=== PATIENT | female | born 2005 | race African-American/Black ===

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

== ENCOUNTER 2024-03-17 11:17 | Emergency (ER) | payer OTHER, SELFPAY ==
[2024-03-17 11:28] VITALS: BP 131/74; PULSE 98; RESP 18; TEMP 37.1; O2SAT 93; BMI 20.5
--- NOTE | 2024-03-17 11:33 | DI.RAD.S_ITS ---
PROCEDURE: XR CHEST 2V INDICATIONS: Cough, phlegm, >week TECHNIQUE: 2 views of the chest were acquired. COMPARISON: None. FINDINGS: Surgical changes and devices: None. Lungs and pleura: Lungs are clear. No pleural effusions or pneumothorax. Mediastinum: Mediastinal contours are normal. Heart size is normal. Bones and chest wall: No suspicious bony abnormalities. Soft tissues appear unremarkable. IMPRESSION: No acute pulmonary process. Dictated by: Sahara Yancey M.D. on 03/17/2024 at 12:34 Approved by: Sahara Yancey M.D. on 03/17/2024 at 12:34
--- NOTE | 2024-03-17 12:05 | ED_ITS ---
HPI - URI/Sore Throat <Mary Carmen Garner PA-C - Last Filed: 03/17/24 13:27> General Chief Complaint: Upper Respiratory Symptoms Stated Complaint: cough for a wk, SOB chest tightness Time Seen by Provider: 03/17/24 12:05 Source: patient Mode of arrival: Family Vehicle History of Present Illness HPI Narrative: Ms. Barcenas is a pleasant 18-year-old female with a past medical history of asthma who presents to the emergency department for productive cough x1 week. Patient states that at times she has chest tightness and shortness of breath associated with the cough. She also has a sore throat. Describes cough as very wet with greenish phlegm. States that she has lost her albuterol inhaler so she has not been able to use that. Reports that she has been around sick family members. The last 2 nights she has had trouble sleeping due to nighttime cough which is what prompted her emergency department visit. Denies fevers, chills, dysuria, hematuria, leg pain or swelling. She does note 1 episode of nonbloody diarrhea. She does smoke. Related Data Previous Rx's Medication Instructions Recorded albuterol sulfate 90 mcg/actuation 2 puff inhalation Q6H PRN 03/17/24 aerosol inhaler shortness of breath or wheezing #6.7 grams benzonatate 200 mg capsule 200 mg PO BID-TID PRN cough #14 03/17/24 caps prednisone 20 mg tablet 40 mg (2 x 20 mg) PO DAILY 5 days 03/17/24 #10 tabs Review of Systems <Mary Carmen Garner PA-C - Last Filed: 03/17/24 13:27> Review of Systems ROS Unobtainable: All systems reviewed & are unremarkable except as noted in HPI and below Patient History <Mary Carmen Garner PA-C - Last Filed: 03/17/24 13:27> Social History Smoking Status: Current every day smoker Smoking Status: Current every day smoker tobacco type: vaping alcohol intake frequency: 0-2 drinks per day Exam <Mary Carmen Garner PA-C - Last Filed: 03/17/24 13:27> Narrative Exam Narrative: GENERAL: 18 year old patient appears stated age. Well-developed patient, in no acute distress. HEAD: Atraumatic. Normocephalic. ENT: Nose without bleeding, purulent drainage. Throat with mild posterior oropharyngeal erythema and 2+ bilateral tonsillar hypertrophy. Airway patent. NECK: Trachea midline. Cervical ROM intact. CARDIOVASCULAR: Regular rate and rhythm. RESPIRATORY: ?Nonlabored respirations. ?Speaking in clear, full sentences. Very mild but diffuse expiratory wheezes present. EXTREMITIES: No edema or joint tenderness. NEURO: AOx3. ?Clear speech. ?Moves all 4 extremities appropriately. SKIN: No rash or erythema of visible areas Initial Vital Signs Initial Vital Signs: Vital Signs Temperature 98.8 F 03/17/24 11:28 Pulse Rate 98 H 03/17/24 11:28 Respiratory Rate 18 03/17/24 11:28 Blood Pressure 131/74 03/17/24 11:28 Pulse Oximetry 93 03/17/24 11:28 Oxygen Delivery Method Room Air 03/17/24 11:28 <Thais Julien MD - Last Filed: 03/19/24 07:29> Initial Vital Signs Initial Vital Signs: Vital Signs Temperature 98.8 F 03/17/24 11:28 Pulse Rate 98 H 03/17/24 11:28 Respiratory Rate 18 03/17/24 11:28 Blood Pressure 131/74 03/17/24 11:28 Pulse Oximetry 93 03/17/24 11:28 Oxygen Delivery Method Room Air 03/17/24 11:28 Course <Mary Carmen Garner PA-C - Last Filed: 03/17/24 13:27> Orders Ordered: Discontinued Medications Albuterol/Ipratropium (Albuterol/Ipratropium 3 Ml Ampul) 3 ml INH NOW ONE Stop: 03/17/24 12:25 Last Admin: 03/17/24 12:33 Dose: 3 ml Documented By: WENDY Prednisone (Prednisone 20 Mg Tablet) 40 mg PO NOW ONE Stop: 03/17/24 12:25 Last Admin: 03/17/24 12:47 Dose: 40 mg Documented By: SPF Vital Signs Vital signs: Vital Signs - 8 hr 03/17/24 11:28 03/17/24 12:33 Temperature 98.8 F Pulse Rate 98 H 91 H Respiratory Rate 18 18 Blood Pressure 131/74 Pulse Oximetry 93 99 Oxygen Delivery Method Room Air Room Air <Thais Julien MD - Last Filed: 03/19/24 07:29> Orders Ordered: Discontinued Medications Albuterol/Ipratropium (Albuterol/Ipratropium 3 Ml Ampul) 3 ml INH NOW ONE Stop: 03/17/24 12:25 Last Admin: 03/17/24 12:33 Dose: 3 ml Documented By: WENDY Prednisone (Prednisone 20 Mg Tablet) 40 mg PO NOW ONE Stop: 03/17/24 12:25 Last Admin: 03/17/24 12:47 Dose: 40 mg Documented By: LISA Vital Signs Vital signs: Vital Signs - 8 hr 03/17/24 11:28 03/17/24 12:33 Temperature 98.8 F Pulse Rate 98 H 91 H Respiratory Rate 18 18 Blood Pressure 131/74 Pulse Oximetry 93 99 Oxygen Delivery Method Room Air Room Air MDM - URI/Sore Throat <Mary Carmen Garner PA-C - Last Filed: 03/17/24 13:27> Lab Data Labs: Lab Results 03/17/24 03/17/24 Range/Units 11:35 12:35 Chlamy pneumoniae PCR Not detected (Not Detect) Adenovirus (PCR) Not detected (Not Detect) B. pertussis DNA (PCR) Not detected (Not Detect) B.parapertussis DNA PCR Not detected (Not Detecte) Coronavirus OC43 (PCR) Not detected (Not Detect) Coronavirus HKU1 (PCR) Not detected (Not Detect) Coronavirus 229E (PCR) Not detected (Not Detect) SARS-CoV-2 (PCR) Not detected (Not Detecte) Coronavirus NL63 (PCR) Not detected (Not Detect) Human Metapneumovir PCR Not detected (Not Detect) Influenza Type A (PCR) Not detected (Not Detect) Influenza Type B (PCR) Not detected (Not Detect) M. pneumoniae (PCR) Not detected (Not Detect) Parainfluenza 1 (PCR) Not detected (Not Detect) Parainfluenza 2 (PCR) Not detected (Not Detect) Parainfluenza 3 (PCR) Not detected (Not Detect) Parainfluenza 4 (PCR) Not detected (Not Detect) RSV (PCR) Not detected (Not Detect) Entero/Rhino (PCR) Not detected (Not Detect) Group A Strep (PCR) Negative (Negative) Imaging Data Chest x-ray: Radiologist's Impression: PROCEDURE: XR CHEST 2V INDICATIONS: Cough, phlegm, >week TECHNIQUE: 2 views of the chest were acquired. COMPARISON: None. FINDINGS: Surgical changes and devices: None. Lungs and pleura: Lungs are clear. No pleural effusions or pneumothorax. Mediastinum: Mediastinal contours are normal. Heart size is normal. Bones and chest wall: No suspicious bony abnormalities. Soft tissues appear unremarkable. IMPRESSION: No acute pulmonary process. MDM Narrative Medical decision making narrative: 18-year-old female with a past medical history of asthma who presents to the emergency department for productive cough x1 week. Differential diagnosis includes but is not limited to asthma exacerbation, bronchitis, viral URI, pneumonia, etc. On exam the patient is in no acute distress, nontoxic appearing. Triage vital signs did display heart rate of 98, O2 sat 93 on room air, temp 98.8?, normal blood pressure. She has no increased work breathing. She does have very mild but diffuse expiratory wheezing present. She does have posterior oropharyngeal erythema and some tonsillar hypertrophy. In triage a chest x-ray and full respiratory panel was obtained. We will treat patient with oral prednisone, 1 time DuoNeb, results pending. Chest x-ray negative for pneumonia or other abnormality. Respiratory panel negative for specific pathogen. Strep swab negative. Patient's symptoms consistent with bronchitis and asthma exacerbation. We will treat with albuterol inhaler, short course prednisone, will prescribe Tessalon Perles if needed for cough and recommend supportive care such as hydration, warm tea with honey, ibuprofen/Tylenol for pain. O2 sats increased to 99% after neb, wheezing resolved, she is feeling much better. Patient verbalized understanding of all information, she is stable for discharge home. <Thais Julien MD - Last Filed: 03/19/24 07:29> Lab Data Labs: Lab Results 03/17/24 03/17/24 Range/Units 11:35 12:35 Chlamy pneumoniae PCR Not detected (Not Detect) Adenovirus (PCR) Not detected (Not Detect) B. pertussis DNA (PCR) Not detected (Not Detect) B.parapertussis DNA PCR Not detected (Not Detecte) Coronavirus OC43 (PCR) Not detected (Not Detect) Coronavirus HKU1 (PCR) Not detected (Not Detect) Coronavirus 229E (PCR) Not detected (Not Detect) SARS-CoV-2 (PCR) Not detected (Not Detecte) Coronavirus NL63 (PCR) Not detected (Not Detect) Human Metapneumovir PCR Not detected (Not Detect) Influenza Type A (PCR) Not detected (Not Detect) Influenza Type B (PCR) Not detected (Not Detect) M. pneumoniae (PCR) Not detected (Not Detect) Parainfluenza 1 (PCR) Not detected (Not Detect) Parainfluenza 2 (PCR) Not detected (Not Detect) Parainfluenza 3 (PCR) Not detected (Not Detect) Parainfluenza 4 (PCR) Not detected (Not Detect) RSV (PCR) Not detected (Not Detect) Entero/Rhino (PCR) Not detected (Not Detect) Group A Strep (PCR) Negative (Negative) Discharge Plan Departure Patient Disposition: Home Clinical Impression: Bronchitis Asthma exacerbation Qualifiers: Asthma severity: mild Asthma persistence: unspecified Qualified Code(s): J45.901 - Unspecified asthma with (acute) exacerbation Instructions: DI for Acute Bronchitis Activity Restrictions/Additional Instructions: Today your chest x-ray reveals no pneumonia or bacterial upper respiratory infection. Your viral swab was negative for COVID, the flu, RSV, and other pathogens. Strep throat swab negative. Your exam did reveal wheezing so you were treated with oral steroids and an inhaler nebulizer treatment. Your symptoms are likely the results an upper respiratory virus causing an exacerbation of your asthma. Please complete the full course of prescribed steroids and use prescribed albuterol inhaler as needed. Please try to decrease or stop smoking and follow up with the primary care doctor for repeat evaluation as soon as possible. You may use warm tea with honey to help with sore throat, increase hydration with water or Pedialyte to help expel mucus, and use ibuprofen/Tylenol as needed for pain and inflammation. Please take Ibuprofen (Motrin/Advil) or Acetaminophen (Tylenol) for pain. These are available over the counter. You may take Ibuprofen 600 mg every 8 hours with food for pain. You may also take Acetaminophen 650 mg every 4-6 hours for pain. Do not exceed 3000 mg of Tylenol a day as this can cause liver damage. Do not drink alcohol with either of these medications. If you develop persistent fevers, difficulty breathing, worsening of symptoms or any other concerns please return immediately to the ER. Otherwise follow up with your primary care doctor. Please follow up with your primary care doctor within the next 2-3 days for ER follow-up. (If you do not have a PCP you can call [phone]. ?to schedule an appointment with an [facility] Primary Care Provider) IF YOU DEVELOP ANY NEW OR WORSENING SYMPTOMS, RETURN TO THE ER! Please read the attached instructions, they highlight more specific treatments and interventions for you at home. Thank you for letting me participate in your care, Mary Carmen Garner PA-C Prescriptions: New albuterol sulfate 90 mcg/actuation HFA aerosol inhaler 2 puff inhalation Q6H PRN (Reason: shortness of breath or wheezing) Qty: 6.7 0RF prednisone 20 mg tablet 40 mg PO DAILY 5 Days Qty: 10 0RF benzonatate 200 mg capsule 200 mg PO BID-TID PRN (Reason: cough) Qty: 14 0RF Referrals: Prem Patton MD [Primary Care Provider] - Stand Alone Forms: Patient Portal/API/Survey ED Sign-out <Thais Julien MD - Last Filed: 03/19/24 07:29> Cosign ED Attending Mikaature Attestation: I was immediately available in the department for consultation throughout this patient's visit. Thais Julien MD
[2024-03-17 12:31] LABS: Adenovirus Not Detected (Not Detect); B. parapertussis Not Detected (Not Detecte); Bordetella pertussis Not Detected (Not Detect); Chlamydophila pneumoniae Not Detected (Not Detect); Coronavirus 229E Not Detected (Not Detect); Coronavirus HKU1 Not Detected (Not Detect); Coronavirus NL 63 Not Detected (Not Detect); Coronavirus OC43 Not Detected (Not Detect); Human Metapneumovirus Not Detected (Not Detect); Human Rhinovirus/Enterovirus Not Detected (Not Detect); Influenza A Not Detected (Not Detect); Influenza B Not Detected (Not Detect); Mycoplasma pneumoniae Not Detected (Not Detect); Parainfluenza Virus 1 Not Detected (Not Detect); Parainfluenza Virus 2 Not Detected (Not Detect); Parainfluenza Virus 3 Not Detected (Not Detect); Parainfluenza Virus 4 Not Detected (Not Detect); Respiratory Syncytial Virus Not Detected (Not Detect); SARS- CoV-2 Not Detected (Not Detecte)
[2024-03-17 12:33] VITALS: PULSE 91; RESP 18; O2SAT 99
[2024-03-17] MEDS: ALBUTEROL/IPRATROPIUM 3 ML AMPUL INH (12:33)
[2024-03-17] MEDS: predniSONE 20 MG TABLET 40 MG PO (12:47)
[2024-03-17 13:02] LABS: Strep Grp A by PCR Rapid Negative (Negative)
[2024-03-17 13:34] VITALS: BP 130/72; PULSE 95; RESP 18; O2SAT 97
== END 2024-03-17 13:34 | disposition home or self-care (01) ==
PROVIDERS: Emergency Medicine; Emergency Provider Physician Assistant; PCP Pediatrics
DX: J20.9 Acute bronchitis, unspecified (principal); J45.901 Unspecified asthma with (acute) exacerbation; R07.9 Chest pain, unspecified; R06.02 Shortness of breath; J02.9 Acute pharyngitis, unspecified
CPT/HCPCS: 71046; 87633; 87651; 94640; 99283

== ENCOUNTER 2024-06-25 11:33 | Emergency (ER) | payer OTHER, SELFPAY ==
[2024-06-25 11:43] VITALS: BP 128/71; PULSE 88; RESP 16; TEMP 36.9; O2SAT 96; BMI 20.5
--- NOTE | 2024-06-25 11:47 | EKG_ITS ---
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
--- NOTE | 2024-06-25 12:00 | ED_ITS ---
HPI - Chest Pain <Phoebe Larson PA-C - Last Filed: 06/25/24 13:14> General Chief Complaint: Chest Pain Stated Complaint: Chest pain Time Seen by Provider: 06/25/24 11:59 Source: patient Mode of arrival: Ambulatory History of Present Illness HPI narrative: 18-year-old female with past medical history GERD presents to the ED with 2 days of left-sided chest pain. Patient states that it is worse with laying on her le ft side. Endorses some nausea. No fever, chills, rhinorrhea, cough, sore throat, dysuria, lightheadedness, dizziness, syncope. Patient endorses vaping. Patient denies any other recreational drug use. Related Data Previous Rx's Medication Instructions Recorded albuterol sulfate 90 mcg/actuation 2 puff inhalation Q6H PRN 03/17/24 aerosol inhaler shortness of breath or wheezing #6.7 grams benzonatate 200 mg capsule 200 mg PO BID-TID PRN cough #14 03/17/24 caps Allergies Allergy/AdvReac Type Severity Reaction Status Date / Time pimecrolimus [From Elidel] Allergy Verified 06/25/24 11:51 Review of Systems <Phoebe Larson PA-C - Last Filed: 06/25/24 13:14> Constitutional Constitutional: Denies chills, Denies fatigue, Denies fever(s), Denies frequent falls, Denies lethargy and Denies weakness Eyes Eyes: Denies change in vision, Denies eye discharge, Denies irritation and Denies loss of vision ENT Ears, Nose, Mouth, and Throat: Denies change in voice, Denies dizziness, Denies neck pain, Denies sore throat and Denies throat swelling Cardiovascular Cardiovascular: Reports chest pain, Denies irregular heart rhythm, Denies lightheadedness, Denies palpitations, Denies dyspnea, Denies dyspnea on exertion and Denies orthopnea Respiratory Respiratory: Denies cough, Denies dyspnea, Denies dyspnea on exertion and Denies wheezing Gastrointestinal Gastrointestinal: Denies abdominal pain, Denies change in bowel habits, Denies diarrhea, Denies nausea and Denies vomiting Musculoskeletal Musculoskeletal: Denies neck pain and Denies numbness Integumentary/Breasts Skin/Breast: Denies pruritus, Denies erythema, Denies rash and Denies wounds Neurologic Neurologic: Denies behavioral changes, Denies confusion, Denies dizziness, Denies frequent falls, Denies loss of vision, Denies numbness and Denies weakness Psychiatric Psychiatric: Denies anxiety, Denies behavioral changes, Denies confusion, Denies depression, Denies homicidal ideation and Denies suicidal ideation Endocrine Endocrine: Denies fatigue, Denies flushing and Denies palpitations Hematologic/Lymphatic Hematologic/Lymphatic: Denies easy bruising Allergic/Immunologic Allergic/Immunologic: Denies urticaria, Denies throat swelling and Denies wheezing Patient History <Phoebe Larson PA-C - Last Filed: 06/25/24 13:14> Social History Smoking Status: Current every day smoker Smoking Status: Current every day smoker tobacco type: vaping alcohol intake frequency: 0-2 drinks per day Exam <Phoebe Larson PA-C - Last Filed: 06/25/24 13:14> Narrative Exam Narrative: Const General:?cooperative, healthy appearing and comfortable [facility] Head:?normal to inspection Ears:?hearing grossly normal bilaterally Nose:?external nose normal Face and sinus:?normal facial exam and sinuses nontender Mouth:?oral mucosae normal Throat:?posterior oropharynx normal Eyes General:?appearance normal, both eyes and all related structures Neck Neck:?normal visual inspection and no lymphadenopathy noted Resp Effort & Inspection:?normal respiratory effort Auscultation:?clear to auscultation bilaterally Cardio Rate:?regular rate Rhythm:?regular rhythm Chest wall: There is left-sided chest wall tenderness reproduced with palpation. GI There is epigastric tenderness to palpation. Abdomen is soft, nondistended Neuro General:?patient alert, patient awake and patient oriented x3 Initial Vital Signs Initial Vital Signs: Vital Signs Temperature 98.5 F 06/25/24 11:43 Pulse Rate 88 06/25/24 11:43 Respiratory Rate 16 06/25/24 11:43 Blood Pressure 128/71 06/25/24 11:43 Pulse Oximetry 96 06/25/24 11:43 Oxygen Delivery Method Room Air 06/25/24 11:43 <Josiane Bruner DO - Last Filed: 06/25/24 18:24> Initial Vital Signs Initial Vital Signs: Vital Signs Temperature 98.5 F 06/25/24 11:43 Pulse Rate 88 06/25/24 11:43 Respiratory Rate 16 06/25/24 11:43 Blood Pressure 128/71 06/25/24 11:43 Pulse Oximetry 96 06/25/24 11:43 Oxygen Delivery Method Room Air 06/25/24 11:43 Course <Phoebe Larson PA-C - Last Filed: 06/25/24 13:14> Orders Ordered: ED Orders 06/25/24 11:42 EKG-12 Lead Stat Discontinued Medications Acetaminophen (Acetaminophen 325 Mg Tablet) 975 mg PO NOW ONE Stop: 06/25/24 12:21 Last Admin: 06/25/24 13:03 Dose: 975 mg Documented By: VIMAL Famotidine (Famotidine 20 Mg Tablet) 40 mg PO NOW ONE Stop: 06/25/24 12:21 Last Admin: 06/25/24 13:03 Dose: 40 mg Documented By: VIMAL Vital Signs Vital signs: Vital Signs - 8 hr 06/25/24 11:43 06/25/24 13:25 Temperature 98.5 F Pulse Rate 88 63 Respiratory Rate 16 16 Blood Pressure 128/71 Pulse Oximetry 96 96 Oxygen Delivery Method Room Air Room Air <Josiane Brunre DO - Last Filed: 06/25/24 18:24> Orders Ordered: ED Orders 06/25/24 11:42 EKG-12 Lead Stat Discontinued Medications Acetaminophen (Acetaminophen 325 Mg Tablet) 975 mg PO NOW ONE Stop: 06/25/24 12:21 Last Admin: 06/25/24 13:03 Dose: 975 mg Documented By: VIAML Famotidine (Famotidine 20 Mg Tablet) 40 mg PO NOW ONE Stop: 06/25/24 12:21 Last Admin: 06/25/24 13:03 Dose: 40 mg Documented By: VIMAL Vital Signs Vital signs: Vital Signs - 8 hr 06/25/24 11:43 06/25/24 13:25 Temperature 98.5 F Pulse Rate 88 63 Respiratory Rate 16 16 Blood Pressure 128/71 Pulse Oximetry 96 96 Oxygen Delivery Method Room Air Room Air MDM - Chest Pain <Phoebe Larson PA-C - Last Filed: 06/25/24 13:14> MDM Narrative Medical decision making narrative: 18-year-old female with past medical history GERD presents to the ED with 2 days of left-sided chest pain. EKG was obtained which is normal sinus rhythm with a nonspecific T-wave abnormality. No acute ST-T changes. No axis deviation. It is reassuring on physical exam, that left-sided chest wall pain is reproducible with palpation. There is also some epigastric tenderness, possibly from GERD. PERC neg. Patient was given Tylenol, Pepcid AC in the ED. Recommend continuing to trial Pepcid AC and Tylenol. Counseled patient on vaping cessation. Recommend follow-up with PCP as soon as possible. ED return precautions discussed with patient. Patient verbalized understanding. Medical records reviewed: Yes Discharge Plan Departure Patient Disposition: Home Clinical Impression: Atypical chest pain Instructions: DI for Atypical Chest Pain Activity Restrictions/Additional Instructions: You were evaluated in the ED today for chest pain. Your EKG was normal. It is reassuring that your pain is reproduced by pushing on your chest. Your symptoms are likely due to a musculoskeletal sprain/strain versus acid reflux. It is also important that you refrain from vaping, since it can cause serious lung damage. You were given Tylenol and Pepcid AC in the ED. you may continue trialing the Pepcid AC twice a day as well as Tylenol for pain. Please follow- up with your PCP as soon as possible. Return to the ED if you have worsening symptoms. Prescriptions: No Action albuterol sulfate 90 mcg/actuation HFA aerosol inhaler 2 puff inhalation Q6H PRN (Reason: shortness of breath or wheezing) Qty: 6.7 0RF benzonatate 200 mg capsule 200 mg PO BID-TID PRN (Reason: cough) Qty: 14 0RF Referrals: ProviderOumar [Primary Care Provider] - Stand Alone Forms: Patient Portal/API/Survey, Work Release Note ED Sign-out <Josiane Bruner DO - Last Filed: 06/25/24 18:24> Cosign ED Attending Mikaature Attestation: I was immediately available in the department for consultation.
[2024-06-25] MEDS: FAMOTIDINE 20 MG TABLET 40 MG PO (13:03)
[2024-06-25] MEDS: ACETAMINOPHEN 325 MG TABLET 975 MG PO (13:03)
--- NOTE | 2024-06-25 13:24 | PC.NURSE ---
CP at night when laying down; intermittent. No previous medical/cardiac hx. Respirations regular and unlabored
[2024-06-25 13:25] VITALS: PULSE 63; RESP 16; O2SAT 96
== END 2024-06-25 13:25 | disposition home or self-care (01) ==
PROVIDERS: Emergency Provider Student in an Organized Health Care Education/Training Program
DX: R07.89 Other chest pain (principal)
CPT/HCPCS: 93005; 93010; 99283; A9270